=== PATIENT | female | born 1960 | race Caucasian/White ===

== ENCOUNTER 2017-01-18 11:13 | Emergency (ER) | payer MEDICAID ==
[~2017-01-18] VITALS: Ht 170.2 cm; Wt 79.4 kg
--- NOTE | 2017-01-18 11:44 | Emergency Room Report ---
History of Present Illness Time Seen by 113Ling Presenting Problem in Triage Pt arrived:Walked Presenting Problem:RIGHT SIDE BACK PAIN AFTER FALLING Onset of symptoms date/time:01/16/17 or onset unknown for: Treatment Prior to Arrival: [employer]PER[employer] Provided by: Sepsis Risk Assessment: Temp: 98.3 B/P: 117/83 MAP: 94 Pulse: 80 Resp: 18 Recent fever? N Clinical Suspician of Infection? N Mental Status: 1 - Regular (Normal Baseline) Sepsis Risk:Low Sepsis Risk Have you (or family members/close friends) recently traveled outside the [place]? N If Yes, where/when: Have you had exposure to infectious disease within the past month? N TB? Other? Specify: Source patient, RN notes reviewed Exam Limitations no limitations Comment Fell down steps at daughters house 2 days ago and has a large bruise on right lower back and pain radiating into right hip and leg. She is ambulatory but significant pain Cardiac Chest Pain Chest pain indicative of cardiac No ALLERGIES Coded Allergies: codeine (Intermediate, I-HIVES 08/27/15) morphine (Intermediate, I-HIVES 08/27/15) penicillin G (Intermediate, I-HIVES 08/27/15) rofecoxib (From VIOXX) (NA-NAUSEA/VOMITING 08/27/15) Home Medications Reported Medications HYDROCHLOROTHIAZIDE (Hydrochlorothiazide) 25 MG PO DAILY #30 PAROXETINE HCL (Paroxetine Hcl) 20 MG NG DAILY #30 History Medical History General CAD? No Angina: No MO: No Hypertension? Yes Hyperlipidemia? No CHF? No COPD? No Asthma? No Anemia? No Hernia? No Thyroid Problems? Yes Hypothyroidism? No CVA? No Seizures? No Diabetes? No End Stage Renal Disease? No UTI? No Stones? Yes GB Disease: Yes Nephritic Syndrome? No Asplenia? No Hepatitis? No Sickle Cell Disease? No Arthritis? Yes Cataracts? No Glaucoma? No MRSA? No TB? No Anxiety? Yes Cancer? No Immunization Hx DT/Tetanus 1-4 YRS Pneumonia Never Had Surgical Hx Previous Surgery?Y C SECTION X2 GALLBLADDER TUBAL [employer] FINISHING HAND Hx LMP menopause Family History Family Hx Diabetes No CAD Yes Hypertension Yes Hyperlipidemia No Cancer Yes TB No Social History Smoking Hx Smoker: Never Smoker Tobacco: No Packs/day N/A Alcohol Alcohol: No Review of Systems All Other Systems Reviewed and Negative Constitutional see HPI Musculoskeletal see HPI Skin see HPI Physical Exam Vital Signs Vital Signs Date Time Temp Pulse Resp B/P Pulse O2 O2 Flow FiO2 Ox Delivery Rate 01/18 1422 80 18 123/79 97 01/18 1118 98.3 80 18 117/83 97 General Appearance normal appearance, WD/WN, no apparent distress Respiratory Status No: respiratory distress. Lung Sounds bilateral: normal breath sounds. Cardiovascular normal exam, regular rate/rhythm Neurologic alert, gallery or museum guide II-XII nml as tested, normal exam Reflexes DTR 2+ knee (R), 2+ knee (L) Skin bruising (on right lower back) Medical Decision Making LABS/Meds/Orders Pt receiving controlled substance in ED? Yes Results/Orders Laboratory Tests 01/18/17 1526: Sodium 139, Potassium 3.5, Chloride 102, Carbon Dioxide 32, BUN 21 H, Creatinine 1.1 H, Estimated Creat Clear 73, Estimated GFR (MDRD) 52 L, Glucose 88, Calcium 9.5, Total Bilirubin 0.4, AST 17, ALT 26, Alkaline Phosphatase 117 H, Total Protein 8.5 H, Albumin 4.0, Globulin 4.5 H, Albumin/Globulin Ratio 0.9 L, WBC 11.0 H, RBC 4.87, Hgb 14.4, Hct 42.0, MCV 86.4, RDW 12.8, Plt Count 349, MPV 7.5, Gran % 69.6, Gran # 7.7, Lymphocytes % 22.0, Monocytes % 4.8, Eosinophils % 2.8, Basophils % 0.8, Lymphocytes # 2.4, Monocytes # 0.5, Eosinophils # 0.3, Basophils # 0.1, PUBS MCHC 34.3, MCH 29.7, Urine Color YELLOW , Urine Appearance CLEAR, Urine pH 5.5, Ur Specific [place] 1.025, Urine Protein NEGATIVE, Urine Ketones NEGATIVE, Urine Blood 3+ H, Urine Nitrate NEGATIVE, Urine Bilirubin NEGATIVE, Urine Urobilinogen 1.0, Ur Leukocyte Esterase 1+ H, Urine RBC OCC, Urine WBC 3-5, Ur Squamous Epith Cells 10-20, Urine Bacteria 3+, Urine Mucus 1+, Urine Glucose NEGATIVE Current Medication Orders Sig/Iman Start time Last Medication Dose Route Stop Time Status Admin Orphenadrine Citrate 0 .STK-MED ONE 01/18 1353 DC .ROUTE Orphenadrine Citrate 60 MG ONCE ONE 01/18 1345 DC 01/18 IM 01/18 1346 1356 Orders Procedure Date/time Status DIET-NOTHING BY MOUTH 01/18 D Active CULTURE, URINE 01/18 1526 Active URINALYSIS/COMPLETE 01/18 1336 Complete CBC WITH AUTO DIFF 01/18 1336 Complete CHEM 12 PROFILE 01/[address] ABD/PELVIS REQ 01/18 1153 Complete XRAY/CT/US XRAY/CT/US XRAY L-spine CT L-spine CT interpretation by discussed w/radiologist Time results known: 1341 CT Results fractures of transverse processes of L1-2-3...non displaced Departure Departure Time of Disposition 1553 Disposition DC Home or Self Care(routine) Clinical Impression Primary Impression: Fracture of transverse process of lumbar vertebra Qualifiers: Encounter type: initial encounter Fracture type: closed Qualified Code: S32.009A - Unspecified fracture of unspecified lumbar vertebra, initial encounter for closed fracture Condition STABLE Patient Instructions Acute Cystitis, DI for Acute Cystitis, DI for Low Back Pain , Low Back Pain Additional Instructions Sleep on a flat hard surface and take meds as directed. Followup with PCP in 3 to 4 days to recheck urine Discharge Counseling Counseled pt/family regarding diagnosis, test results, medications/RX, home care, follow up needs Prescriptions Current Visit Scripts HYDROCODONE 5MG/APAP 325MG (Hydrocodon-Acetaminophen 5-325) 1 TAB PO Q4HP PRN pain #18 TAB Methocarbamol (Robaxin) 500 MG PO BID #60 TAB ED Critical Care Critical Care No If Critical Care minutes are documented, the time involved in the performance of seperately reportable procedures was not counted toward critical care time documented. I directly delivered medical care to this critically ill and/or injured patient. Timely evaluation and treatment was necessary to address the significant organ system(s) dysfunction present in this patient. at 1551
--- NOTE | 2017-01-18 13:05 | RADIOLOGY REPORT PS360 ---
HIP RT 2-3V W/PELVIS IF PERFOR HISTORY: Pain following injury fall with injury ORDERING PHYSICIAN: Nano Denson MD PATIENT AGE: 56 years COMPARISON: None FINDINGS: No fracture or dislocation is evident. No significant degenerative change. No lytic or blastic change. Unremarkable soft tissues small sclerotic focus is present in the proximal femur on the left at 7 mm and may be due to a bone island IMPRESSION: No acute finding
--- NOTE | 2017-01-18 13:06 | RADIOLOGY REPORT PS360 ---
FEMUR-RT-2 VIEWS HISTORY: Pain following injury fall with injury ORDERING PHYSICIAN: Nano Denson MD PATIENT AGE: 56 years COMPARISON: None FINDINGS: No acute fracture or dislocation. Osteoarthritic changes are present at the knee. IMPRESSION: No acute finding.
--- NOTE | 2017-01-18 13:13 | RADIOLOGY REPORT PS360 ---
CT ABD PELVIS W/O CONTRAST CLINICAL INDICATION: Pain following injury FALL WITH INJURY TO RT LOWER BACK ORDERING PHYSICIAN: Nano Denson MD PATIENT AGE: 56 years COMPARISON: 08/27/2015 TECHNIQUE: Axial images obtained with sagittal and coronal reformats. PROCEDURE: Oral Contrast: None IV Contrast: None . FINDINGS: Solid organ evaluation is limited without IV contrast. The lung bases are clear. There is been a prior cholecystectomy. Multiple splenic granulomas are noted.. The liver, spleen, adrenal glands, and pancreas show no acute abnormality. There is a nonobstructing 2 mm stone in the mid aspect of the right kidney. 4 cm isodensity involving the left kidney inferiorly consistent with renal cyst. Unremarkable appendix. No intestinal obstruction or free air. No focal inflammatory change. No pelvic mass or abnormal fluid collection. Mild dextroscoliosis. Nondisplaced fracture involves the transverse process on the right at L1, L2, and L3. IMPRESSION: 1. Nondisplaced fracture of the right L1, L2, and L3 transverse processes. 2. Incomplete, evaluation of solid organs without IV contrast. No gross acute intra-abdominal or pelvic pathology. 3. Nonobstructing right nephrolithiasis
[2017-01-18 15:34] LABS: HEMOGLOBIN 14.4 g/dL (12.2-16.2); LYMPH # 2.4 K/mm3 (0.7-4.5)
[2017-01-18 15:42] LABS: URINE BILIRUBIN - DIPSTICK NEGATIVE (NEG); URINE BLOOD 3+ (NEG)
[2017-01-18 16:06] VITALS: BP 123/79
== END 2017-01-18 16:06 | disposition home or self-care (01) ==
LOC: ER 11:13
PROVIDERS: General Practice
DX: S32.019A Unspecified fracture of first lumbar vertebra, initial encounter for closed fracture (principal); S32.029A Unspecified fracture of second lumbar vertebra, initial encounter for closed fracture; S32.039A Unspecified fracture of third lumbar vertebra, initial encounter for closed fracture; I10 Essential (primary) hypertension; F41.9 Anxiety disorder, unspecified; W10.8XXA Fall (on) (from) other stairs and steps, initial encounter; Y92.009 Unspecified place in unspecified non-institutional (private) residence as the place of occurrence of the external cause; Z79.899 Other long term (current) drug therapy

== ENCOUNTER → 2017-03-18 | Outpatient (CLI) | payer MEDICAID ==
[~2017-03-18] MED LIST: ADOXA100 MG PO; ATIVAN1 M1 OR; BACTRIM DS 8001 TA1 PO; BLOOD PRESSURE MED; CIPRO 500MG TA500 MG PO; DAYQUIL COLD/FL1 SGL PO; FEROSUL325 MG PO; FERROUS SULFATE65 MG; FLEXERIL10 MG PO; HYDROCHLOROTHIA25 M1 PO; HYDROCODONE-APA1 TA1 PO; IRON PO; KLOR-CON 1010 ME1 PO; KLOR-CON M1010 MEQ; LEVOTHYROXIN0.025 MG PO; LORTAB 5/500 501 TAB PO; MECLIZINE 25MG25 MG PO; MED FOR DEPRESSION; MIRALAX(PO17 GM/1 PA PO; Mobic7.5 MG PO; NYQUIL PO; PAROXETINE HCL20 MG NG; PAXIL20 MG PO; PHENERGAN 25MG.25 M1 PO; PREDNISONE 20MG20 MG PO; PRILOSEC20 MG PO; ROBAXIN500 M1 PO; TAMIFLU 75MG CA75 MG PO; TESSALON PERLE100 MG PO; TRAMADOL 50MG T50 M1 PO; VICODIN 5/500 T1 TAB PO; VISTARIL25 MG PO; VISTARIL25 MG/5 ML PO; ZANTAC 150150 MG PO; ZITHROMAX Z-PA250 M2 PO; [UNRECOGNIZED DRUG - REMARK]; [UNRECOGNIZED DRUG - REMARK]
--- NOTE | 2017-03-18 17:31 | RADIOLOGY REPORT PS360 ---
CHEST(2 VIEWS-NOT PORTABLE) HISTORY: CHST PAIN, HX OF FRACTURE RIBchest pain Patient Age: 56 years: Female Ordering Physician: Sonia Barrett APRN TECHNIQUE: PA and lateral chest COMPARISON :08/27/2015 CXR 2 view FINDINGS Lungs well expanded & clear. Mild hyperexpansion suggested towards apices.. Heart, yahaira & mediastinal structures are satisfactory. Chest wall and T-spine appears stable. No pleural effusion. No pneumothorax. IMPRESSION: Stable chest. Nothing definite acute
--- NOTE | 2017-03-29 16:03 | RADIOLOGY REPORT PS360 ---
DIG MAMM-SCREEN FLORIDALMA W/CAD ORDERING PHYSICIAN : Sonia Barrett APRN PATIENT AGE: 56 years GENDER: Female COMPARISON: . Staff double check file At [facility] , no previous mammogram available for comparison. Prior studies have been checked out or purged . However I did use a the abdomen August 2015 and for comparison, as it does partially included mid and lower breast. TECHNIQUE: Std CC & MLO images were obtained. R2 CAD reviewed. FINDINGS: Lower density breast bilaterally with minimal fibroglandular elements. Stable mild asymmetry with minor densities bilaterally which I believe can be followed. RIGHT BREAST: Minimal density at the retroareolar region most likely ductal prominence.. I suspect is present on prior CT from 2016 and is stable. It partially dissipates from one view to another LEFT BREAST:. Mild the glandular asymmetry upper quadrant and central left breast noted, this low-density area dissipates from one view to another and I believe can be followed.- I believe similar features also present on prior CT 2016 abdomen limited views of breast).. I would recommend bilateral follow-up in one year however to sure stability IMPRESSION: No suspicious findings. Minor observations bilaterally most likely reflecting stable mild asymmetry No focal areas of significant concern. Follow-up not over one year recommended (Stat again checked for prior studies but none found and ( BI-RADS CATEGORY: 2_Benign RECOMMENDED FOLLOWUP: 12M 12 MONTH FOLLOW-UP (A letter has been sent to the patient regarding results of the study.) LANE/TRACY BALDERRAMA/ ARE HER 2010 FILMS AVAILABLE FOR COMPARISON?
== END ==
LOC: RAD 16:02
DX: Z12.31 Encounter for screening mammogram for malignant neoplasm of breast (principal); Z87.81 Personal history of (healed) traumatic fracture
CPT/HCPCS: G0202

== ENCOUNTER → 2017-03-21 | Outpatient (CLI) | payer MEDICAID ==
[2017-03-21 10:09] LABS: LYMPH % 26.5 % (10-50.0)
[2017-03-21 11:16] LABS: BUN 17 mg/dL (7-18); GFR (ESTIMATED) 75 ML/MIN (59-)
[2017-03-22 05:40] LABS: HBsAg Screen Negative (Negative); Hep A Ab, IgM Negative (Negative); Hep B Core Ab, IgM Negative (Negative); Hep C Virus Ab 0.2 (0.0-0.9)
[2017-03-22 06:37] LABS: Vitamin B12 666 pg/mL (211-946)
[2017-03-27 16:35] LABS: 1,25-Dihydroxy, Vitamin D-2 <10 pg/mL (.); 1,25-Dihydroxy, Vitamin D-3 46 pg/mL (.); Total 1,25-Dihydroxy,Vitamin D 46 pg/mL (.)
== END ==
LOC: LAB 09:48
PROVIDERS: Nurse Practitioner Family
DX: I10 Essential (primary) hypertension (principal); F32.9 Major depressive disorder, single episode, unspecified; Z79.899 Other long term (current) drug therapy; Z78.0 Asymptomatic menopausal state; Z87.81 Personal history of (healed) traumatic fracture; Z00.00 Encounter for general adult medical examination without abnormal findings